=== PATIENT | female | born 1965 | race African-American/Black ===

== ENCOUNTER 2022-10-19 03:07 | Inpatient (IN) | payer MEDICAID ==
[~2022-10-19] VITALS: Ht 170.2 cm; Wt 113.1 kg
[2022-10-19] VITALS (8 sets, daily range): BP systolic 115–155; BP diastolic 71–103
[~2022-10-19 03:07] MED LIST: ASPI-1497 MT; CLOP75TA33 PO; LOSA50TA41 MT; METO-539 MT
[2022-10-19] MEDS ORDERED: ONDANSETRON HCL 4MG/2ML INJ IV ONE (03:30)
[2022-10-19] MEDS ORDERED: MORPHINE SULFATE 4 MG/ML CPJ (NOT FOR IM USE) IV ONE ×2 (03:30→04:30)
[2022-10-19 04:08] LABS: BASOPHILS % 0.5 % (0.0-2.0); EOSINOPHILS % 0.2 % (0.0-5.0); HEMATOCRIT. 30.6 % (36.0-48.0); HEMOGLOBIN. 10.2 g/dL (12.0-16.0); LYMPHOCYTES % 14.1 % (20.0-50.0); MEAN CORPUSCULAR HEMOGLOBIN 25.2 pg (28.0-32.0); MEAN CORPUSCULAR VOLUME 75.6 fL (81.0-99.0); MEAN PLATELET VOLUME 8.9 fl (7.4-10.4); MONOCYTES % 5.7 % (2.0-8.0); NEUTROPHILS % 79.5 % (40.0-76.0); PLATELET 187 x1000/uL (130-400); RED BLOOD CELL COUNT 4.05 mill/uL (4.2-5.4); RED CELL DISTRIBUTION WIDTH 14.7 % (11.6-14.6)
[2022-10-19 04:16] LABS: CHLORIDE 104 mEq/L (98-107)
[2022-10-19 04:24] LABS: ETHANOL BLOOD < 10 mg/dL
[2022-10-19] MEDS ORDERED: IOHEXOL-350 100 ML BOTTLE ONE (05:39)
[2022-10-19] MEDS ORDERED: HYDROCODONE/ACETAMINOPHEN 5/325MG TABLET PO NR (05:45)
[2022-10-19 06:30] LABS: *AMPHETAMINES SCREEN URINE NEGATIVE (NEGATIVE); *BARBITURATES SCREEN URINE NEGATIVE (NEGATIVE); *BENZODIAZEPINES SCREEN URINE NEGATIVE (NEGATIVE); *COCAINE SCREEN URINE NEGATIVE (NEGATIVE); CANNABINOID URINE SCREEN NEGATIVE (NEGATIVE); METHADONE URINE SCREEN NEGATIVE (NEGATIVE); OPIATES URINE SCREEN PRESUMTIVE POSITIVE (NEGATIVE); PHENCYCLIDINE URINE SCREEN NEGATIVE (NEGATIVE)
[2022-10-19] MEDS ORDERED: CLONIDINE 0.1MG TABLET PO PRN (07:30)
[2022-10-19] MEDS ORDERED: GUAIFENESIN 200MG/10ML SUGAR FREE UDC PO PRN (07:30)
[2022-10-19] MEDS ORDERED: ACETAMINOPHEN 325MG TABLET PO PRN ×2 (07:30)
[2022-10-19] MEDS ORDERED: ONDANSETRON HCL 4MG/2ML INJ IV PRN (07:30)
[2022-10-19] MEDS ORDERED: DOCUSATE SODIUM 100MG CAPSULE PO PRN (07:30)
[2022-10-19] MEDS ORDERED: HYDROCODONE/ACETAMINOPHEN 5/325MG TABLET PO PRN (07:30)
[2022-10-19] MEDS ORDERED: MAGNESIUM/ALUMINUM HYDROXIDE/SIMETHICONE 30ML UDC PO PRN (07:30)
[2022-10-19] MEDS ORDERED: MORPHINE SULFATE 4 MG/ML CPJ (NOT FOR IM USE) IV NR (09:00)
[2022-10-19] MEDS ORDERED: IBUP-2030 PO (09:22)
[2022-10-19] MEDS ORDERED: FAMO20TA8 PO (09:22)
[2022-10-19] MEDS ORDERED: APIX5TAB PO (09:22)
[2022-10-19] MEDS ORDERED: NALOXONE HCL 0.4MG/ML VIAL IV PRN (10:30)
[2022-10-19] MEDS: MORPHINE SULFATE 2 MG/ML CPJ (NOT FOR IM USE) IV PRN ×4 (10:48→21:43)
[2022-10-19] MEDS: KCL 20MEQ/100ML PREMIX 100 ML IV SCH ×2 (12:51→16:06)
[2022-10-19] MEDS ORDERED: HYDRALAZINE 20MG/ML VIAL IV PRN (14:15)
[2022-10-19] MEDS: AMLODIPINE 10MG TABLET PO SCH (16:08)
[2022-10-19 17:38] LABS: PROTHROMBIN TIME 10.8 sec (9.6-11.0)
[2022-10-19] MEDS: HYDROCODONE/ACETAMINOPHEN 5/325MG TABLET PO PRN (18:49)
[2022-10-19] MEDS: FAMOTIDINE 20MG TABLET PO SCH (21:43)
[2022-10-20] VITALS (9 sets, daily range): BP systolic 109–163; BP diastolic 57–89
[2022-10-20] MEDS: HYDROCODONE/ACETAMINOPHEN 5/325MG TABLET PO PRN (00:19)
[2022-10-20] MEDS: MORPHINE SULFATE 2 MG/ML CPJ (NOT FOR IM USE) IV PRN ×5 (03:46→12:37)
[2022-10-20 06:29] LABS: CHLORIDE 107 mEq/L (98-107)
[2022-10-20] MEDS: AMLODIPINE 10MG TABLET PO SCH (09:58)
[2022-10-20 10:46] LABS: BASOPHILS % 0.3 % (0.0-2.0); EOSINOPHILS % 0.3 % (0.0-5.0); HEMATOCRIT. 30.2 % (36.0-48.0); HEMOGLOBIN. 9.9 g/dL (12.0-16.0); LYMPHOCYTES % 15.8 % (20.0-50.0); MEAN CORPUSCULAR HEMOGLOBIN 25.6 pg (28.0-32.0); MEAN PLATELET VOLUME 8.8 fl (7.4-10.4); MONOCYTES % 8.5 % (2.0-8.0); NEUTROPHILS % 75.1 % (40.0-76.0); PLATELET 183 x1000/uL (130-400); RED BLOOD CELL COUNT 3.88 mill/uL (4.2-5.4); RED CELL DISTRIBUTION WIDTH 14.6 % (11.6-14.6)
[2022-10-20 10:49] LABS: MEAN CORPUSCULAR VOLUME 77.8 fL (81.0-99.0)
[2022-10-20] MEDS ORDERED: LIDOCAINE HCL/EPINEPHRINE 1%-EPI 1:100,000 30 ML VIAL INFIL ONE (12:43)
[2022-10-20] MEDS ORDERED: VANCOMYCIN HCL 1 GM/VIAL ONE (12:44)
[2022-10-20] MEDS ORDERED: POLYMYXIN B SULFATE 500000 UNITS/VIAL ONE (12:44)
[2022-10-20] MEDS ORDERED: ONDANSETRON HCL 4MG/2ML INJ ONE (13:27)
[2022-10-20] MEDS ORDERED: DEXAMETHASONE 4MG/ML 1ML VIAL ONE (13:27)
[2022-10-20] MEDS ORDERED: LIDOCAINE HCL 1% 10 MG/ML 10ML VIAL ONE (13:27)
[2022-10-20] MEDS ORDERED: PROPOFOL 200MG/20ML VIAL IV ONE (13:29)
[2022-10-20] MEDS ORDERED: FENTANYL CITRATE/PF 50MCG/ML 2ML VIAL ONE ×2 (13:29→14:08)
[2022-10-20] MEDS ORDERED: MIDAZOLAM HCL 2 MG/2 ML VIAL ONE (13:30)
[2022-10-20] MEDS ORDERED: LABETALOL 5MG/ML SYR 20 MG/4 ML SYRINGE IV PRN (14:15)
[2022-10-20] MEDS ORDERED: ONDANSETRON HCL 4MG/2ML INJ IV PRN (14:15)
[2022-10-20] MEDS ORDERED: HYDROMORPHONE HCL/PF 2MG/ML CPJ IV PRN (14:15)
[2022-10-20] MEDS ORDERED: MEPERIDINE HCL/PF 25MG/ML CPJ IV PRN (14:15)
[2022-10-20] MEDS: FAMOTIDINE 20MG TABLET PO SCH (21:17)
[2022-10-20] MEDS: CEFAZOLIN 2,000 MG in DEXT 5% WATER 100 ML IV SCH (21:17)
[2022-10-21] VITALS (12 sets, daily range): BP systolic 95–155; BP diastolic 37–85
[2022-10-21] MEDS: HYDROCODONE/ACETAMINOPHEN 5/325MG TABLET PO PRN ×4 (01:50→19:30)
[2022-10-21] MEDS: CEFAZOLIN 2,000 MG in DEXT 5% WATER 100 ML IV SCH ×3 (04:25→20:56)
[2022-10-21] MEDS: AMLODIPINE 10MG TABLET PO SCH (08:11)
[2022-10-21 10:51] LABS: HEMATOCRIT 24.3 % (36.0-48.0); HEMOGLOBIN 8.1 g/dL (12.0-16.0); MEAN CORPUSCULAR HEMOGLOBIN 25.9 pg (28.0-32.0); MEAN CORPUSCULAR VOLUME 77.1 fL (81.0-99.0); PLATELET 233 x1000/uL (130-400); RED BLOOD CELL COUNT 3.15 mill/uL (4.2-5.4); RED CELL DISTRIBUTION WIDTH 14.9 % (11.6-14.6)
[2022-10-21 11:00] LABS: CHLORIDE 106 mEq/L (98-107)
[2022-10-21] MEDS: KCL 20MEQ/100ML PREMIX 100 ML IV SCH ×2 (13:20→16:56)
[2022-10-21] MEDS: FAMOTIDINE 20MG TABLET PO SCH (20:56)
[2022-10-22] VITALS (14 sets, daily range): BP systolic 116–156; BP diastolic 44–80
[2022-10-22] MEDS: CEFAZOLIN 2,000 MG in DEXT 5% WATER 100 ML IV SCH ×3 (04:26→21:00)
[2022-10-22] MEDS: HYDROCODONE/ACETAMINOPHEN 5/325MG TABLET PO PRN ×3 (04:28→18:59)
[2022-10-22 07:04] LABS: HEMATOCRIT 24.5 % (36.0-48.0); MEAN CORPUSCULAR HEMOGLOBIN 25.4 pg (28.0-32.0); MEAN CORPUSCULAR VOLUME 77.4 fL (81.0-99.0); PLATELET 243 x1000/uL (130-400); RED BLOOD CELL COUNT 3.16 mill/uL (4.2-5.4); RED CELL DISTRIBUTION WIDTH 14.9 % (11.6-14.6)
[2022-10-22 07:14] LABS: CHLORIDE 108 mEq/L (98-107)
[2022-10-22] MEDS: AMLODIPINE 10MG TABLET PO SCH (09:18)
[2022-10-22] MEDS ORDERED: POTASSIUM CHLORIDE 20MEQ/PACKET GT NR (09:30)
[2022-10-22] MEDS ORDERED: NA PHOS,M-B/NA PHOS,DI-BA ENEMA 118ML PR NR (17:15)
[2022-10-22] MEDS: FAMOTIDINE 20MG TABLET PO SCH (21:00)
[2022-10-23] VITALS (12 sets, daily range): BP systolic 96–161; BP diastolic 53–93
[2022-10-23] MEDS: HYDROCODONE/ACETAMINOPHEN 5/325MG TABLET PO PRN ×2 (04:56→15:36)
[2022-10-23 06:32] LABS: CHLORIDE 106 mEq/L (98-107)
[2022-10-23 06:55] LABS: HEMATOCRIT 23.2 % (36.0-48.0); HEMOGLOBIN 7.8 g/dL (12.0-16.0); MEAN CORPUSCULAR HEMOGLOBIN 25.6 pg (28.0-32.0); MEAN CORPUSCULAR VOLUME 76.4 fL (81.0-99.0); PLATELET 262 x1000/uL (130-400); RED BLOOD CELL COUNT 3.03 mill/uL (4.2-5.4); RED CELL DISTRIBUTION WIDTH 14.8 % (11.6-14.6)
[2022-10-23] MEDS ORDERED: POTASSIUM CHLORIDE 20MEQ TABLET SR PO NR (07:30)
[2022-10-23] MEDS: AMLODIPINE 10MG TABLET PO SCH (08:30)
[2022-10-23] MEDS: CARVEDILOL 6.25 MG TABLET PO SCH ×2 (15:35→21:13)
[2022-10-23] MEDS: FAMOTIDINE 20MG TABLET PO SCH (21:13)
[2022-10-24] VITALS (11 sets, daily range): BP systolic 88–157; BP diastolic 32–104
[2022-10-24] MEDS: CARVEDILOL 6.25 MG TABLET PO SCH (09:36)
[2022-10-24] MEDS: AMLODIPINE 10MG TABLET PO SCH (09:36)
[2022-10-24 09:55] LABS: HEMOGLOBIN 8.6 g/dL (12.0-16.0); MEAN CORPUSCULAR HEMOGLOBIN 25.5 pg (28.0-32.0); MEAN CORPUSCULAR VOLUME 76.6 fL (81.0-99.0); PLATELET 302 x1000/uL (130-400); RED BLOOD CELL COUNT 3.39 mill/uL (4.2-5.4); RED CELL DISTRIBUTION WIDTH 15.3 % (11.6-14.6)
[2022-10-24 10:02] LABS: CHLORIDE 103 mEq/L (98-107)
[2022-10-24] MEDS: HYDROCODONE/ACETAMINOPHEN 5/325MG TABLET PO PRN (12:35)
[2022-10-24] MEDS ORDERED: NALOXONE HCL 0.4MG/ML VIAL IV PRN (14:45)
[2022-10-24] MEDS ORDERED: POTASSIUM CHLORIDE 20MEQ TABLET SR PO NR (17:15)
[2022-10-25 04:07] LABS: B-2 GLYCOPROTEIN IGA < 9 (0-25); B-2 GLYCOPROTEIN IGG < 9 (0-20)
[2022-10-25 08:08] LABS: ANTI-DNA DOUBLE STRANDED QUANT < 1 IU/mL (0-9)
[2022-10-25 09:10] LABS: ANTI-CARDIOLIPIN AB IGG < 9 GPL U/mL (0-14); ANTI-CARDIOLIPIN AB IGM < 9 MPL U/mL (0-12)
== END 2022-10-24 19:15 | disposition home health service (06) | DRG 317 ==
LOC: ER 03:07 → 7EST 05:18 → 5EST 12:00
PROVIDERS: ADMIT Internal Medicine; ATTEND Internal Medicine
PROC: 0KNT0ZZ Release Left Lower Leg Muscle, Open Approach (ICD-10-PCS; principal; 2022-10-20)
PROC: 0Y9J0ZZ Drainage of Left Lower Leg, Open Approach (ICD-10-PCS; 2022-10-20)
PROC: 0JCP0ZZ Extirpation of Matter from Left Lower Leg Subcutaneous Tissue and Fascia, Open Approach (ICD-10-PCS; 2022-10-20)
DX: M79.A22 Nontraumatic compartment syndrome of left lower extremity (principal); I82.402 Acute embolism and thrombosis of unspecified deep veins of left lower extremity; M32.9 Systemic lupus erythematosus, unspecified; S80.10XA Contusion of unspecified lower leg, initial encounter; D50.9 Iron deficiency anemia, unspecified; E66.9 Obesity, unspecified; I71.9 Aortic aneurysm of unspecified site, without rupture; E87.6 Hypokalemia; Z20.822 Contact with and (suspected) exposure to COVID-19; I16.0 Hypertensive urgency; I25.10 Atherosclerotic heart disease of native coronary artery without angina pectoris; S80.12XA Contusion of left lower leg, initial encounter; G89.29 Other chronic pain; I10 Essential (primary) hypertension; Z86.718 Personal history of other venous thrombosis and embolism; I25.2 Old myocardial infarction; Z95.5 Presence of coronary angioplasty implant and graft; Z79.01 Long term (current) use of anticoagulants; Z79.02 Long term (current) use of antithrombotics/antiplatelets; Z79.82 Long term (current) use of aspirin; Z79.899 Other long term (current) drug therapy
CPT/HCPCS: 36415; 71045; 75635; 80048; 80053; 80305; 80320; 81403; 81407; 81479; 83540; 83550; 83735; 83880; 84484; 85025; 85027; 85651; 86038; 86146; 86147; 86160; 86225; 86235; 87426; 93005; 93306; 93922; 93971; 97162; 99285; J0360; J0690; J1100; J2175; J2250; J2270; J2405; J2704; J3010; J3370; J3480; J3490; J7060; Q9967; G0480